=== PATIENT | male | born 2000 | race African-American/Black ===

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

== ENCOUNTER 2019-04-25 21:40 | Emergency (ER) | payer OTHER ==
[2019-04-25 21:45] VITALS: TEMP 98.1
[2019-04-25 22:43] LABS: Amphetamine Screen,Urine Not Detected (NotDetected); Barbiturate Screen,Urine Not Detected (NotDetected); Benzodiazepines Screen,Urine Not Detected (NotDetected); Cocaine Screen,Urine Not Detected (NotDetected); Methadone Screen, Urine Not Detected (NotDetected); Opiate Screen,Urine Not Detected (NotDetected); Oxycodone Screen, Urine Not Detected (NotDetected); Phencyclidine Screen,Urine Not Detected (NotDetected); Tricyclic Antidepressant,Urine Not Detected (NotDetected); Urn Cannabinoid Scrn Detected (NotDetected)
--- NOTE | 2019-04-26 00:45 | ED ---
Psych HPI - General Chief Complaint: Psychiatric Symptoms Stated Complaint: Suicidal Time Seen by Provider: 04/25/19 21:46 Source: patient Mode of arrival: ambulatory - History of Present Illness Initial Comments: This patient is 19-year-old man brought to have evaluation for depression and suicidal ideation. The patient states that he had been undergoing a lot of stress and was feeling that he would be better off . He does not have an active plan for suicide. He does state that if he only he would consider shooting himself, but he does not have access to one. Patient has had previous depression and is not currently seeing a counselor or psychiatrist. He is not currently taking any medications. Denies other complaints MD Complaint: feels depressed -: hour(s) Associated Psychiatric Symptoms: depression History of same: Yes Quality: changing over time Improves With: none Worsens With: none Associated Symptoms: denies other symptoms - Related Data Home Medications Medication Instructions Recorded Confirmed No Known Home Medications 12/12/17 04/25/19 Allergies Allergy/AdvReac Type Severity Reaction Status Date / Time No Known Allergies Allergy Verified 04/25/19 23:01 Review of Systems ROS Statement: Those systems with pertinent positive or pertinent negative responses have been documented in the HPI. ROS Other: All systems not noted in ROS Statement are negative. Respiratory: Denies: cough, dyspnea Cardiovascular: Denies: chest pain, palpitations Gastrointestinal: Denies: abdominal pain, vomiting, diarrhea Genitourinary: Denies: dysuria, hematuria Musculoskeletal: Denies: back pain Neurological: Denies: headache, weakness Psychiatric: Reports: depression, suicidal thoughts. Denies: auditory hallucinations, visual hallucinations, homicidal thoughts Past Medical History Past Medical History: No Reported History History of Any Multi-Drug Resistant Organisms: None Reported Past Surgical History: No Surgical Hx Reported Past Anesthesia/Blood Transfusion Reactions: No Reported Reaction Additional Past Anesthesia/Blood Transfusion Reaction / Comment(s): Has never had either. Past Psychological History: ADD/ADHD, Depression Smoking Status: Current every day smoker Past Alcohol Use History: Rare Past Drug Use History: Marijuana - Past Family History Father History Unknown: Yes Mother History Unknown: Yes family History Unknown: Yes Additional Family Medical History / Comment(s): denies any history of CAD or cancer General Exam Limitations: no limitations General appearance: alert, in no apparent distress Head exam: Present: atraumatic, normocephalic Eye exam: Present: normal appearance. Absent: scleral icterus, conjunctival injection Respiratory exam: Present: normal lung sounds bilaterally. Absent: respiratory distress, wheezes, rales, rhonchi, stridor Cardiovascular Exam: Present: regular rate, normal rhythm, normal heart sounds. Absent: systolic murmur, diastolic murmur, rubs, gallop GI/Abdominal exam: Present: soft. Absent: distended, tenderness, guarding, rebound, rigid, mass Extremities exam: Present: normal inspection Neurological exam: Present: alert Psychiatric exam: Present: normal affect, depressed, suicidal ideation. Absent: agitated, anxious, flat affect, manic, homicidal ideation Skin exam: Present: warm, dry, intact, normal color. Absent: rash Course Vital Signs 04/25/19 21:41 Temperature 98.1 F Pulse Rate 70 Respiratory 20 Rate Blood Pressure 123/80 O2 Sat by Pulse 99 Oximetry Medical Decision Making - Lab Data Lab Results 04/25/19 Range/Units Unknown Urine Opiates Screen Not Detected (NotDetected) Ur Oxycodone Screen Not Detected (NotDetected) Urine Methadone Screen Not Detected (NotDetected) Ur Propoxyphene Screen Not Detected (NotDetected) Ur Barbiturates Screen Not Detected (NotDetected) U Tricyclic Antidepress Not Detected (NotDetected) Ur Phencyclidine Scrn Not Detected (NotDetected) Ur Amphetamines Screen Not Detected (NotDetected) U Methamphetamines Scrn Not Detected (NotDetected) U Benzodiazepines Scrn Not Detected (NotDetected) Urine Cocaine Screen Not Detected (NotDetected) U Marijuana (THC) Screen Detected H (NotDetected) Disposition Clinical Impression: Mood disorder Disposition: HOME SELF-CARE Condition: Good Is patient prescribed a controlled substance at d/c from ED?: No Referrals: None,Stated [Primary Care Provider] - 1-2 days
[2019-04-26 01:00] VITALS: BP 120/75; PULSE 76; RESP 18
== END 2019-04-26 01:00 | disposition home or self-care (01) ==
LOC: EC 21:40
DX: F32.9 Major depressive disorder, single episode, unspecified (principal); R45.851 Suicidal ideations; F17.200 Nicotine dependence, unspecified, uncomplicated; Z73.3 Stress, not elsewhere classified
CPT/HCPCS: 80306; 82075; 99285

== ENCOUNTER 2019-12-03 02:32 | Emergency (ER) | payer OTHER ==
[2019-12-03] MEDS ORDERED: LIDOCAINE 1% INJ 10MG/ML (20 ML MDV) SQ ONE (02:40)
[2019-12-03] MEDS ORDERED: DIPH,PERTUS(ACELL)TETVAC-LF 0.5 ML VIAL IM ONE (02:40)
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
[2019-12-03 02:44] VITALS: RESP 18
[2019-12-03 04:35] VITALS: BP 107/76; PULSE 96; TEMP 98
== END 2019-12-03 04:25 | disposition home or self-care (01) ==
LOC: EC 02:32
DX: S61.511A Laceration without foreign body of right wrist, initial encounter (principal); F17.200 Nicotine dependence, unspecified, uncomplicated; Y00.XXXA Assault by blunt object, initial encounter; Y93.89 Activity, other specified
CPT/HCPCS: 12002; 90471; 90715; 99284

== ENCOUNTER 2020-03-24 20:15 | Emergency (ER) | payer OTHER ==
[2020-03-24 20:19] LABS: Glucose,Whole Blood 81 mg/dL (75-99)
[2020-03-24] MEDS ORDERED: SODIUM CHLORIDE 0.9% 1,000 ML IV STA (20:23)
[2020-03-24 20:25] VITALS: TEMP 97.9
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
[2020-03-24 20:39] LABS: Basophils # (A) 0.1 k/uL (0-0.2); Basophils % (A) 1 %; Eosinophils # (A) 0.3 k/uL (0-0.7); Eosinophils % (A) 3 %; HCT 49.4 % (39.0-53.0); HGB 16.6 gm/dL (13.0-17.5); Lymphocytes # (A) 3.8 k/uL (1.0-4.8); Lymphocytes % (A) 43 %; MCH 30.9 pg (25.0-35.0); MCHC 33.6 g/dL (31.0-37.0); MCV 92.1 fL (80.0-100.0); Mean Platelet Volume 6.7; Monocytes # (A) 0.2 k/uL (0-1.0); Monocytes % (A) 3 %; Neutrophils # (A) 4.2 k/uL (1.3-7.7); Neutrophils % (A) 48 %; Platelet Count 240 k/uL (150-450); RBC 5.36 m/uL (4.30-5.90); RDW 12.7 % (11.5-15.5); WBC 8.6 k/uL (3.8-10.6)
[2020-03-24 21:15] LABS: Amphetamine Screen,Urine Not Detected (NotDetected); Barbiturate Screen,Urine Not Detected (NotDetected); Benzodiazepines Screen,Urine Not Detected (NotDetected); Cocaine Screen,Urine Not Detected (NotDetected); Methadone Screen, Urine Not Detected (NotDetected); Opiate Screen,Urine Not Detected (NotDetected); Oxycodone Screen, Urine Not Detected (NotDetected); Phencyclidine Screen,Urine Not Detected (NotDetected); Tricyclic Antidepressant,Urine Not Detected (NotDetected); Urn Cannabinoid Scrn Detected (NotDetected)
[2020-03-24 21:22] LABS: ALT 10 U/L (4-49); AST 23 U/L (17-59); Acetaminophen <10.0 ug/mL; African American GFR (CKD) >90 (>60 ml/min/1.73 sqM); Albumin 4.4 g/dL (3.5-5.0); Alkaline Phosphatase 85 U/L (38-126); Anion Gap 8 mmol/L; Blood Urea Nitrogen 9 mg/dL (9-20); Calcium 9.3 mg/dL (8.4-10.2); Carbon Dioxide 27 mmol/L (22-30); Chloride 111 mmol/L (98-107); Glucose 93 mg/dL (74-99); Non-African American GFR(CKD) >90 (>60 ml/min/1.73 sqM); Potassium 4.9 mmol/L (3.5-5.1); Salicylate <1.0 mg/dL; Sodium 146 mmol/L (137-145); Total Bilirubin 0.3 mg/dL (0.2-1.3); Total Protein 7.2 g/dL (6.3-8.2)
[2020-03-24 21:32] LABS: Alcohol 238 mg/dL
[2020-03-24] MEDS ORDERED: LORazepam 2 MG/ML INJ IV STA (22:12)
[2020-03-24 23:22] VITALS: BP 135/99; PULSE 110; RESP 16
== END 2020-03-24 23:15 | disposition home or self-care (01) ==
LOC: EC 20:15
DX: F10.129 Alcohol abuse with intoxication, unspecified (principal); Y90.9 Presence of alcohol in blood, level not specified; F17.200 Nicotine dependence, unspecified, uncomplicated
CPT/HCPCS: 36415; 93005; 80053; 85025; 80306; 83520; 99284; 96360; G0480 ×2; 80320; 80329

== ENCOUNTER 2022-12-27 02:30 | Emergency (ER) | payer OTHER ==
[2022-12-27] MEDS ORDERED: LIDOCAINE 1% INJ 10MG/ML (20 ML MDV) SQ ONE (02:43)
[2022-12-27] MEDS ORDERED: LORazepam 2 MG/ML INJ IV STA (02:43)
[2022-12-27] MEDS ORDERED: DIPH,PERTUS(ACELL)TETVAC-LF 0.5 ML VIAL IM ONE (02:43)
[2022-12-27] MEDS ORDERED: HALOPERIDOL LACTATE 5 MG/ML 1 ML VIAL IM STA (02:53)
[2022-12-27] MEDS ORDERED: diphenhydrAMINE 50 MG/ML 1 ML VIAL IVP STA (02:53)
[2022-12-27 03:02] LABS: Basophils % (A) 0 %; Eosinophils # (A) 0.3 k/uL (0-0.7); Eosinophils % (A) 4 %; HCT 43.3 % (39.0-53.0); HGB 14.2 gm/dL (13.0-17.5); Lymphocytes # (A) 3.1 k/uL (1.0-4.8); Lymphocytes % (A) 55 %; MCHC 32.8 g/dL (31.0-37.0); MCV 97.4 fL (80.0-100.0); Mean Platelet Volume 7.3; Monocytes # (A) 0.2 k/uL (0-1.0); Monocytes % (A) 3 %; Neutrophils % (A) 34 %; Platelet Count 219 k/uL (150-450); RBC 4.44 m/uL (4.30-5.90); RDW 12.9 % (11.5-15.5); WBC 5.7 k/uL (3.8-10.6)
[2022-12-27 03:09] LABS: ALT 17 U/L (4-49); AST 33 U/L (17-59); African American GFR (CKD) >90 (>60 ml/min/1.73 sqM); Alkaline Phosphatase 84 U/L (38-126); Anion Gap 12 mmol/L; Blood Urea Nitrogen 7 mg/dL (9-20); Calcium 8.4 mg/dL (8.4-10.2); Carbon Dioxide 19 mmol/L (22-30); Chloride 111 mmol/L (98-107); Glucose 102 mg/dL (74-99); Non-African American GFR(CKD) >90 (>60 ml/min/1.73 sqM); Potassium 3.4 mmol/L (3.5-5.1); Sodium 142 mmol/L (137-145); Total Bilirubin 0.4 mg/dL (0.2-1.3); Total Protein 6.8 g/dL (6.3-8.2)
[2022-12-27] MEDS ORDERED: KETAMINE 50 MG/ML 10 ML VIAL IM ONE (03:20)
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
[2022-12-27] MEDS ORDERED: TOPICAL SKIN ADHESIVE 1 EACH AMP TOPICAL ONE (03:52)
[2022-12-27 03:57] LABS: Alcohol 246 mg/dL
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
[2022-12-27 04:50] LABS: Amphetamine Screen,Urine Not Detected (NotDetected); Barbiturate Screen,Urine Not Detected (NotDetected); Benzodiazepines Screen,Urine Not Detected (NotDetected); Cocaine Screen,Urine Not Detected (NotDetected); Methadone Screen, Urine Not Detected (NotDetected); Opiate Screen,Urine Not Detected (NotDetected); Oxycodone Screen, Urine Not Detected (NotDetected); Phencyclidine Screen,Urine Not Detected (NotDetected); Tricyclic Antidepressant,Urine Not Detected (NotDetected); Urn Cannabinoid Scrn Detected (NotDetected)
[2022-12-27 05:52] VITALS: BP 118/96; PULSE 105; RESP 18; TEMP 98.8
== END 2022-12-27 05:50 | disposition other institution (70) ==
LOC: EC 02:30
DX: S06.5XAA Traumatic subdural hemorrhage with loss of consciousness status unknown, initial encounter (principal); S02.2XXA Fracture of nasal bones, initial encounter for closed fracture; F17.200 Nicotine dependence, unspecified, uncomplicated; F12.90 Cannabis use, unspecified, uncomplicated; Z23 Encounter for immunization; Y04.0XXA Assault by unarmed brawl or fight, initial encounter
CPT/HCPCS: 36415; 80053; 85025; 80306; 72125; 70486; 70450; 90715; 99285; 96365; 96375 ×2; 96372; 90471; G0480; J2060; J1200; J1630; J0690; J2001; 80320

== ENCOUNTER 2023-09-04 04:46 | Emergency (ER) | payer OTHER ==
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
[2023-09-04 05:49] VITALS: BP 132/95; PULSE 96; RESP 18; TEMP 97.5
== END 2023-09-04 05:51 | disposition home or self-care (01) ==
LOC: EC 04:46
DX: F10.129 Alcohol abuse with intoxication, unspecified (principal); F17.200 Nicotine dependence, unspecified, uncomplicated; F12.90 Cannabis use, unspecified, uncomplicated
CPT/HCPCS: 82075; 99284

== ENCOUNTER 2023-09-24 02:16 | Emergency (ER) | payer OTHER ==
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
[2023-09-24 02:26] LABS: Glucose,Whole Blood 165 mg/dL (70-110)
[2023-09-24] MEDS: HYDROmorphone 1 MG/ML 1 ML SYRINGE IVP STA (02:29)
[2023-09-24 02:50] LABS: ALT 43 U/L (4-49); AST 83 U/L (17-59); African American GFR (CKD) >90 (>60 ml/min/1.73 sqM); Alkaline Phosphatase 85 U/L (38-126); Anion Gap 12 mmol/L; Blood Urea Nitrogen 9 mg/dL (9-20); Calcium 8.9 mg/dL (8.4-10.2); Carbon Dioxide 17 mmol/L (22-30); Chloride 110 mmol/L (98-107); Glucose 152 mg/dL (74-99); Non-African American GFR(CKD) >90 (>60 ml/min/1.73 sqM); Potassium 3.5 mmol/L (3.5-5.1); Sodium 139 mmol/L (137-145); Total Bilirubin 0.4 mg/dL (0.2-1.3); Total Protein 7.1 g/dL (6.3-8.2)
[2023-09-24 02:53] LABS: INR 0.9 (<1.2); Prothrombin Time 10.4 sec (10.0-12.5)
[2023-09-24] MEDS: DIPH,PERTUS(ACELL)TETVAC-LF 0.5 ML VIAL IM ONE (03:03)
[2023-09-24 03:13] LABS: HCT 43.3 % (39.0-53.0); HGB 14.3 gm/dL (13.0-17.5); MCH 31.3 pg (25.0-35.0); MCHC 33.1 g/dL (31.0-37.0); MCV 94.6 fL (80.0-100.0); Mean Platelet Volume 7.6; Platelet Count 193 k/uL (150-450); RBC 4.58 m/uL (4.30-5.90); RDW 13.4 % (11.5-15.5)
[2023-09-24 03:22] LABS: Alcohol 258 mg/dL
[2023-09-24 03:28] LABS: Partial Thromboplastin Time 19.1 sec (22.0-30.0)
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
[2023-09-24 03:57] LABS: Lymphocytes # (M) 8.76 k/uL (1.0-4.8); Neutrophils # (M) 3.24 k/uL (1.3-7.7); Neutrophils % (M) 27 %; Nucleated Red Blood Cells 0 /100 WBC (0-0); RBC Morphology Normal; Total Cells Counted 100
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
[2023-09-24 06:33] VITALS: BP 128/86; PULSE 60; RESP 14; TEMP 97.6
== END 2023-09-24 03:48 | disposition short-term general hospital (02) ==
LOC: EC 02:16
DX: S32.591A Other specified fracture of right pubis, initial encounter for closed fracture (principal); S81.812A Laceration without foreign body, left lower leg, initial encounter; S32.502A Unspecified fracture of left pubis, initial encounter for closed fracture; S09.90XA Unspecified injury of head, initial encounter; F10.129 Alcohol abuse with intoxication, unspecified; F17.200 Nicotine dependence, unspecified, uncomplicated; F12.90 Cannabis use, unspecified, uncomplicated; Z23 Encounter for immunization; V89.2XXA Person injured in unspecified motor-vehicle accident, traffic, initial encounter; Y92.411 Interstate highway as the place of occurrence of the external cause
CPT/HCPCS: 36415; 93005; 86900; 86901; 80053; 83605; 84484; 85025; 85610; 85730; 86850; 80320; 72170; 73551; 73590; 72125; 70450; 71260; 74177; 90715; 99291; 90471; 96365; 96375; L1830; G0390; J0690; J1170; Q9967

== ENCOUNTER 2023-10-06 16:02 | Inpatient (IN) | payer OTHER ==
[2023-10-06] MEDS: ORPHENADRINE 30 MG/ML 2 ML VIAL IVP STA (17:18)
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
[2023-10-06] MEDS: ORPHENADRINE 30 MG/ML 2 ML VIAL IM STA (17:34)
[2023-10-06 17:38] LABS: Basophils % (A) 0 %; Eosinophils # (A) 0.2 k/uL (0-0.7); Eosinophils % (A) 2 %; Lymphocytes # (A) 2.3 k/uL (1.0-4.8); Lymphocytes % (A) 23 %; MCH 29.2 pg (25.0-35.0); MCHC 32.3 g/dL (31.0-37.0); MCV 90.4 fL (80.0-100.0); Mean Platelet Volume 7.2; Monocytes # (A) 0.5 k/uL (0-1.0); Monocytes % (A) 5 %; Neutrophils # (A) 6.9 k/uL (1.3-7.7); Neutrophils % (A) 69 %; RBC 3.43 m/uL (4.30-5.90); RDW 14.8 % (11.5-15.5); WBC 10.1 k/uL (3.8-10.6)
[2023-10-06 17:45] LABS: ALT 35 U/L (4-49); AST 36 U/L (17-59); African American GFR (CKD) >90 (>60 ml/min/1.73 sqM); Albumin 3.9 g/dL (3.5-5.0); Alkaline Phosphatase 95 U/L (38-126); Anion Gap 4 mmol/L; Blood Urea Nitrogen 17 mg/dL (9-20); Calcium 9.4 mg/dL (8.4-10.2); Carbon Dioxide 29 mmol/L (22-30); Chloride 98 mmol/L (98-107); Glucose 94 mg/dL (74-99); Non-African American GFR(CKD) >90 (>60 ml/min/1.73 sqM); Potassium 4.6 mmol/L (3.5-5.1); Sodium 131 mmol/L (137-145); Total Bilirubin 1.2 mg/dL (0.2-1.3); Total Protein 7.8 g/dL (6.3-8.2)
[2023-10-06 18:01] LABS: Platelet Count 644 k/uL (150-450)
[2023-10-06] MEDS ORDERED: NALOXONE 0.4 MG/ML 1 ML VIAL IV PRN (18:56)
[2023-10-06] MEDS ORDERED: IBUPROFEN 400 MG TAB PO PRN (18:56)
[2023-10-06] MEDS ORDERED: ACETAMINOPHEN TAB 325 MG TAB PO PRN (18:56)
[2023-10-06] MEDS: HYDROmorphone 0.5 MG/0.5 ML SYRINGE IVP STA (19:00)
[2023-10-06] MEDS: HYDROmorphone 1 MG/ML 1 ML SYRINGE IVP PRN (22:27)
[2023-10-07] MEDS ORDERED: ALPRAZolam 0.25 MG TAB PO PRN (14:09)
[2023-10-07] MEDS ORDERED: TEMAZEPAM 15 MG CAP PO PRN (14:09)
[2023-10-07] MEDS ORDERED: SENNOSIDES-DOCUSATE SODIUM 1 EACH TAB PO PRN (14:15)
[2023-10-07] MEDS: HEPARIN SODIUM,PORCINE 5,000 UNIT/ML 1 ML VIAL SQ SCH (15:19)
[2023-10-07] MEDS: polyethylene glycoL 3350 17 GM POWD.PACK PO SCH (15:20)
[2023-10-07] MEDS: HYDROcodone/APAP 5-325MG 1 EACH TAB PO PRN (21:02)
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
[2023-10-08] MEDS: PANTOPRAZOLE 40 MG TABLET PO SCH (05:16)
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
[2023-10-08 10:27] LABS: Basophils # (A) 0.03 X 10*3/uL (0.00-0.10); Basophils % (A) 0.4 %; Eosinophils # (A) 0.13 X 10*3/uL (0.04-0.35); Eosinophils % (A) 1.7 %; HCT 28.6 % (39.6-50.0); HGB 9.5 g/dL (13.0-17.0); Lymphocytes # (A) 1.94 X 10*3/uL (0.90-5.00); Lymphocytes % (A) 24.7 %; MCH 29.6 pg (27.0-32.0); MCHC 33.2 g/dL (32.0-37.0); MCV 89.1 FL (80.0-97.0); Monocytes % (A) 8.9 %; NRBC Per 100 WBC 0 X 10*3/uL (0.00-0.01); Neutrophils # (A) 5.02 X 10*3/uL (1.80-7.70); Neutrophils % (A) 63.8 %; Platelet Count 622 X 10*3/uL (140-440); RBC 3.21 X 10*6/uL (4.40-5.60); WBC 7.86 X 10*3/uL (4.50-10.00)
[2023-10-08 10:39] LABS: Blood Urea Nitrogen 12.9 mg/dL (9.0-27.0); Calcium 9.2 mg/dL (8.7-10.3); Carbon Dioxide 25.8 mmol/L (21.6-31.8); Chloride 94 mmol/L (96-109); Glucose 92 mg/dL (70-110); Potassium 4.3 mmol/L (3.5-5.5); Sodium 130 mmol/L (135-145)
[2023-10-08] MEDS: FERROUS SULFATE 325 MG TAB PO SCH (15:30)
[2023-10-08] MEDS: KETOROLAC 15 MG/ML 1 ML VIAL IVP PRN (19:51)
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
[2023-10-09 09:21] LABS: HCT 29.4 % (39.6-50.0); HGB 9.7 g/dL (13.0-17.0); MCH 29.6 pg (27.0-32.0); MCV 89.6 FL (80.0-97.0); Mean Platelet Volume 9.3 FL (9.5-12.2); NRBC Per 100 WBC 0 X 10*3/uL (0.00-0.01); Platelet Count 646 X 10*3/uL (140-440); RBC 3.28 X 10*6/uL (4.40-5.60); RDW 14.1 % (11.5-14.5); WBC 5.56 X 10*3/uL (4.50-10.00)
[2023-10-09 09:22] LABS: Basophils # (A) 0.03 X 10*3/uL (0.00-0.10); Basophils % (A) 0.5 %; Eosinophils # (A) 0.13 X 10*3/uL (0.04-0.35); Eosinophils % (A) 2.3 %; Lymphocytes # (A) 1.66 X 10*3/uL (0.90-5.00); Lymphocytes % (A) 29.9 %; Monocytes # (A) 0.41 X 10*3/uL (0.20-1.00); Monocytes % (A) 7.4 %; Neutrophils # (A) 3.31 X 10*3/uL (1.80-7.70); Neutrophils % (A) 59.5 %
[2023-10-09 11:13] LABS: BUN/Creat Ratio 25.17 Ratio (12.00-20.00); Blood Urea Nitrogen 15.1 mg/dL (9.0-27.0); Calcium 9.1 mg/dL (8.7-10.3); Carbon Dioxide 27.1 mmol/L (21.6-31.8); Chloride 98 mmol/L (96-109); Glucose 90 mg/dL (70-110); Potassium 4.5 mmol/L (3.5-5.5); Sodium 133 mmol/L (135-145)
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
[2023-10-10 09:26] LABS: Basophils # (A) 0.03 X 10*3/uL (0.00-0.10); Basophils % (A) 0.6 %; Eosinophils # (A) 0.15 X 10*3/uL (0.04-0.35); HGB 9.4 g/dL (13.0-17.0); Lymphocytes % (A) 37.8 %; MCH 28.9 pg (27.0-32.0); MCHC 31.3 g/dL (32.0-37.0); MCV 92.3 FL (80.0-97.0); Mean Platelet Volume 9.4 FL (9.5-12.2); Monocytes # (A) 0.49 X 10*3/uL (0.20-1.00); Monocytes % (A) 9.8 %; NRBC Per 100 WBC 0 X 10*3/uL (0.00-0.01); Neutrophils # (A) 2.43 X 10*3/uL (1.80-7.70); Neutrophils % (A) 48.4 %; Platelet Count 622 X 10*3/uL (140-440); RBC 3.25 X 10*6/uL (4.40-5.60); RDW 14.2 % (11.5-14.5); WBC 5.02 X 10*3/uL (4.50-10.00)
[2023-10-10 10:13] LABS: BUN/Creat Ratio 20.67 Ratio (12.00-20.00); Blood Urea Nitrogen 12.4 mg/dL (9.0-27.0); Carbon Dioxide 26.6 mmol/L (21.6-31.8); Chloride 97 mmol/L (96-109); Glucose 97 mg/dL (70-110); Potassium 4.6 mmol/L (3.5-5.5); Sodium 132 mmol/L (135-145)
[2023-10-10 10:14] LABS: Calcium 9.2 mg/dL (8.7-10.3)
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
[2023-10-11 08:36] LABS: Basophils # (A) 0.04 X 10*3/uL (0.00-0.10); Basophils % (A) 0.7 %; Eosinophils # (A) 0.13 X 10*3/uL (0.04-0.35); Eosinophils % (A) 2.2 %; HGB 9.6 g/dL (13.0-17.0); Lymphocytes # (A) 1.96 X 10*3/uL (0.90-5.00); Lymphocytes % (A) 33.2 %; MCV 93.7 FL (80.0-97.0); Mean Platelet Volume 9.2 FL (9.5-12.2); Monocytes # (A) 0.42 X 10*3/uL (0.20-1.00); Monocytes % (A) 7.1 %; NRBC Per 100 WBC 0 X 10*3/uL (0.00-0.01); Neutrophils # (A) 3.33 X 10*3/uL (1.80-7.70); Neutrophils % (A) 56.3 %; Platelet Count 610 X 10*3/uL (140-440); RBC 3.31 X 10*6/uL (4.40-5.60); RDW 14.5 % (11.5-14.5); WBC 5.91 X 10*3/uL (4.50-10.00)
[2023-10-11 09:00] LABS: BUN/Creat Ratio 14.29 Ratio (12.00-20.00); Chloride 96 mmol/L (96-109); Glucose 99 mg/dL (70-110); Potassium 4.6 mmol/L (3.5-5.5); Sodium 132 mmol/L (135-145)
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
[2023-10-11] MEDS: CYCLOBENZAPRINE 5 MG TAB PO PRN (22:20)
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
[2023-10-12 20:24] VITALS: RESP 17
[2023-10-13 09:09] VITALS: BP 109/64; PULSE 82; TEMP 97.7
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
[2023-10-13 14:03] VITALS: BMI 19.9
== END 2023-10-13 14:31 | DRG 351 ==
LOC: EC 16:02 → 4SSUR 19:45 → OBSVTOIN 10-07 14:08 → 4SSUR 10-11 00:36
PROVIDERS: ADMIT Hospitalist; ATTEND Hospitalist
DX: M79.662 Pain in left lower leg (principal); F17.210 Nicotine dependence, cigarettes, uncomplicated; F32.A Depression, unspecified; E87.1 Hypo-osmolality and hyponatremia; S32.82XS Multiple fractures of pelvis without disruption of pelvic ring, sequela; S72.92XS Unspecified fracture of left femur, sequela; V03.1 Pedestrian injured in collision with car, pick-up truck or van in traffic accident; F90.9 Attention-deficit hyperactivity disorder, unspecified type; M19.90 Unspecified osteoarthritis, unspecified site; V03.10XA Pedestrian on foot injured in collision with car, pick-up truck or van in traffic accident, initial encounter; Y92.410 Unspecified street and highway as the place of occurrence of the external cause; Z74.1 Need for assistance with personal care
CPT/HCPCS: 36415; 80048; 80053; 85025; 96374; 96375; 96376; 99285

== ENCOUNTER 2024-10-01 05:39 | Emergency (ER) | payer MEDICARE ==
[2024-10-01 05:48] VITALS: TEMP 96.9
[2024-10-01 06:20] LABS: Basophils # (A) 0.01 10*3/uL (0.00-0.10); Basophils % (A) 0.1 %; Eosinophils # (A) 0.12 10*3/uL (0.04-0.35); Eosinophils % (A) 1.7 %; HGB 13.2 g/dL (13.0-17.0); Lymphocytes # (A) 4.76 10*3/uL (0.90-5.00); Lymphocytes % (A) 69.2 %; MCH 31.1 pg (27.0-32.0); MCHC 33.8 g/dL (32.0-37.0); MCV 91.8 fL (80.0-97.0); Mean Platelet Volume 9.1 fL (9.5-12.2); Monocytes # (A) 0.34 10*3/uL (0.20-1.00); Monocytes % (A) 4.9 %; Neutrophils # (A) 1.64 10*3/uL (1.80-7.70); Platelet Count 199 10*3/uL (140-440); RBC 4.25 10*6/uL (4.40-5.60); RDW 12.9 % (11.5-14.5); WBC 6.88 10*3/uL (4.50-10.00)
[2024-10-01 06:27] LABS: ALT 14 U/L (4-49); AST 27 U/L (17-59); African American GFR (CKD) >90 (>60 ml/min/1.73 sqM); Albumin 3.8 g/dL (3.5-5.0); Alkaline Phosphatase 102 U/L (38-126); Anion Gap 12 mmol/L; Blood Urea Nitrogen 8 mg/dL (9-20); Calcium 8.6 mg/dL (8.4-10.2); Carbon Dioxide 23 mmol/L (22-30); Chloride 110 mmol/L (98-107); Glucose 84 mg/dL (74-99); Non-African American GFR(CKD) >90 (>60 ml/min/1.73 sqM); Potassium 3.8 mmol/L (3.5-5.1); Sodium 145 mmol/L (137-145); Total Bilirubin 0.3 mg/dL (0.2-1.3); Total Protein 7.2 g/dL (6.3-8.2)
--- NOTE | 2024-10-01 06:31 | ED ---
Altered Mental Status HPI - General Chief Complaint: Altered Mental Status Stated Complaint: ETOH Time Seen by Provider: 10/01/24 05:55 Source: patient, EMS, RN notes reviewed Mode of arrival: EMS Limitations: no limitations - History of Present Illness Initial Comments: 24-year-old male presents emergency department via EMS chief complaint of mental status. Patient was found sleeping on the side of the road. Patient was initially unresponsive but was responsive to painful stimuli. Patient has no obvious injuries. Patient is agitated on exam. Patient denies any current alcohol or drug use but does have a history of alcohol abuse. Patient has no physical complaints. No chest pain or shortness of breath. - Related Data Home Medications Medication Instructions Recorded Confirmed Sennosides/Docusate Sodium 2 tab PO DIRECTED 10/06/23 10/06/23 [Senna-S 8.6-50 mg Tablet] polyethylene glycoL 3350 [Miralax] 17 gm PO DAILY 10/06/23 10/06/23 Previous Rx's Medication Instructions Recorded Acetaminophen Tab [Tylenol] 650 mg PO Q6HR PRN tab 10/13/23 Cyclobenzaprine [Flexeril] 5 mg PO TID PRN tab 10/13/23 Ferrous Sulfate [Iron (65 MG 325 mg PO W/LUNCH tab 10/13/23 Elemental)] HYDROcodone/APAP 5-325MG [[place] 1 each PO Q6HR PRN #6 tab 10/13/23 5-325] Heparin Sodium,Porcine (1 ml) 5,000 unit SQ Q12HR each 10/13/23 [Heparin Sodium] Ibuprofen [Motrin] 400 mg PO Q6HR PRN tab 10/13/23 Pantoprazole [Protonix] 40 mg PO AC-BRKFST tab 10/13/23 oxyCODONE HCL [OxyIR] 5 mg PO Q6H PRN 3 Days #6 tab 10/13/23 Allergies Allergy/AdvReac Type Severity Reaction Status Date / Time No Known Allergies Allergy Verified 10/01/24 05:48 Review of Systems ROS Statement: Those systems with pertinent positive or pertinent negative responses have been documented in the HPI. ROS Other: All systems not noted in ROS Statement are negative. Past Medical History Past Medical History: No Reported History History of Any Multi-Drug Resistant Organisms: None Reported Past Surgical History: Orthopedic Surgery Additional Past Surgical History / Comment(s): 09/2023 Past Anesthesia/Blood Transfusion Reactions: No Reported Reaction Additional Past Anesthesia/Blood Transfusion Reaction / Comment(s): Has never had either. Past Psychological History: ADD/ADHD, Depression Smoking Status: Vaper - Past Family History Father History Unknown: Yes Mother History Unknown: Yes family History Unknown: Yes Additional Family Medical History / Comment(s): denies any history of CAD or cancer General Exam Limitations: no limitations General appearance: alert, in no apparent distress, appears intoxicated Head exam: Present: atraumatic, normocephalic, normal inspection Eye exam: Present: normal appearance, PERRL, EOMI. Absent: scleral icterus, conjunctival injection, periorbital swelling ENT exam: Present: normal exam, normal oropharynx, mucous membranes moist Neck exam: Present: normal inspection, full ROM. Absent: tenderness, meni ngismus, lymphadenopathy Respiratory exam: Present: normal lung sounds bilaterally. Absent: respiratory distress, wheezes, rales, rhonchi, stridor Cardiovascular Exam: Present: regular rate, normal rhythm, normal heart sounds. Absent: systolic murmur, diastolic murmur, rubs, gallop, clicks Neurological exam: Present: alert, CN II-XII intact. Absent: oriented X3 Psychiatric exam: Present: agitated Skin exam: Present: warm, dry, intact, normal color. Absent: rash Course Vital Signs 10/01/24 10/01/24 10/01/24 05:40 07:41 08:27 Temperature 96.9 F L Pulse Rate 89 74 Respiratory 14 17 18 Rate Blood Pressure 102/57 148/90 O2 Sat by Pulse 99 99 Oximetry - Reevaluation(s) Reevaluation #1: 10/01/24 11:44 Evaluate this time. Patient is awake alert and oriented he has no complaints he has no complaints of headache dizziness focal weakness chest pain shortness of breath extremity pain extremity weakness nausea vomiting. He states that he became very intoxicated when he tried to walk home last night when he states he passed out. Patient was questing discharge patient is sober at this time. Procedures - Restraint - Face to Face Restraint Occurrence 1 Patient's Immediate Situation: Endangers staff safety, Violent behavior Patient's Reaction to the Intervention: Uncooperative, Belligerent, Aggressive Patient's Medical & Behavioral Condition: Awake, Agitated Need to Continue or Terminate Restraint or Seclusion: Continue Face to Face Eval of Restraint Date: 10/01/24 Face to Face Eval of Restraint Time: 06:21 Medical Decision Making - Medical Decision Making Was pt. sent in by a medical professional or institution (, ALINE, HEALTHCARE ACCOUNT MANAGER, urgent care, hospital, or fdc...) When possible be specific @ -[No] Did you speak to anyone other than the patient for history (EMS, parent, family, police, friend...)? What history was obtained from this source @ -[No] Did you review nursing and triage notes (agree or disagree)? Why? @ -[I reviewed and agree with nursing and triage notes] Were old charts reviewed (outside hosp., previous admission, EMS record, old EKG, old radiological studies, urgent care reports/EKG's, fdc records)? Report findings @ -[No old charts were reviewed] Differential Diagnosis (chest pain, altered mental status, abdominal pain women, abdominal pain men, vaginal bleeding, weakness, fever, dyspnea, syncope, headache, dizziness, GI bleed, back pain, seizure, CVA, palpatations, mental health, musculoskeletal)? @ -Differential Altered Mental Status: Hypoglycemia, DKA, hypercapnia, ETOH, overdose, CO poisoning, trauma, myxedema coma, HTN encephalopathy, infection, encephalitis, psychosis, intercranial hemorrhage, hepatic encephalopathy, meningitis, CVA, this is not meant to be an all-inclusive list EKG interpreted by me (3pts min.). @ -None X-rays interpreted by me (1pt min.). @ -[None done] CT interpreted by me (1pt min.). @ -[None done] U/S interpreted by me (1pt. min.). @ -[None done] What testing was considered but not performed or refused? (CT, X-rays, U/S, labs)? Why? @ -[None] What meds were considered but not given or refused? Why? @ -[None] Did you discuss the management of the patient with other professionals (professionals i.e. ALINE Parra, HEALTHCARE ACCOUNT MANAGER, lab, RT, psych nurse, social media manager, petroleum laboratory technician, teacher, community development officer, child support case officer)? Give summary @ -[No] Was smoking cessation discussed for >3mins.? @ -[No] Was critical care preformed (if so, how long)? @ -[No] Were there social determinants of health that impacted care today? How? (Homelessness, low income, unemployed, alcoholism, drug addiction, transportation, low edu. Level, literacy, decrease access to med. care, shelter, rehab)? @ -[No] Was there de-escalation of care discussed even if they declined (Discuss DNR or withdrawal of care, Hospice)? DNR status @ -[No] What co-morbidities impacted this encounter? (DM, HTN, Smoking, COPD, CAD, Cancer, CVA, ARF, Chemo, Hep., AIDS, mental health diagnosis, sleep apnea, morbid obesity)? @ -[None] Was patient admitted / discharged? Hospital course, mention meds given and route, prescriptions, significant lab abnormalities, going to OR and other pertinent info. @ -Discharge patient presented for altered mental status. Patient was combative initially. And intoxicated. Patient was observed for over 6 hours. Patient is sober at this time he has no complaints and will be discharged in stable condition. Undiagnosed new problem with uncertain prognosis? @ -[No] Drug Therapy requiring intensive monitoring for toxicity (Heparin, Nitro, Insulin, Cardizem)? @ -[No] Were any procedures done? @ -[No] Diagnosis/symptom? @Alcohol intoxication Acute, or Chronic, or Acute on Chronic? @ -Acute Uncomplicated (without systemic symptoms) or Complicated (systemic symptoms)? @ -complicated Side effects of treatment? @ -[No] Exacerbation, Progression, or Severe Exacerbation? @ -[No] Poses a threat to life or bodily function? How? (Chest pain, [place], [place], pneumonia, PE, COPD, DKA, ARF, appy, cholecystitis, CVA, Diverticulitis, Homicidal, Suicidal, threat to staff... and all critical care pts) @ -[No] - Lab Data Result diagrams: 10/01/24 05:49 10/01/24 05:49 Lab Results 10/01/24 10/01/24 10/01/24 Range/Units 05:49 05:49 06:30 WBC 6.88 (4.50-10.00) 10*3/uL RBC 4.25 L (4.40-5.60) 10*6/uL Hgb 13.2 (13.0-17.0) g/dL Hct 39.0 L (39.6-50.0) % MCV 91.8 (80.0-97.0) fL MCH 31.1 (27.0-32.0) pg MCHC 33.8 (32.0-37.0) g/dL Plt Count 199 (140-440) 10*3/uL MPV 9.1 L (9.5-12.2) fL Immature Gran % (Auto) 0.1 % Neutrophils % 24.0 % Lymphocytes % 69.2 % Monocytes % 4.9 % Eosinophils % 1.7 % Basophils % 0.1 % Immature Gran # 0.01 (0.00-0.04) 10*3/uL Neutrophils # 1.64 L (1.80-7.70) 10*3/uL Lymphocytes # 4.76 (0.90-5.00) 10*3/uL Monocytes # 0.34 (0.20-1.00) 10*3/uL Eosinophils # 0.12 (0.04-0.35) 10*3/uL Basophils # 0.01 (0.00-0.10) 10*3/uL Manual Slide Review Performed Sodium 145 (137-145) mmol/L Potassium 3.8 (3.5-5.1) mmol/L Chloride 110 H (98-107) mmol/L Carbon Dioxide 23 (22-30) mmol/L Anion Gap 12 mmol/L BUN 8 L (9-20) mg/dL Creatinine 0.69 (0.66-1.25) mg/dL Est GFR (CKD-EPI)AfAm >90 (>60 ml/min/1.73 sqM) Est GFR (CKD-EPI)NonAf >90 (>60 ml/min/1.73 sqM) Glucose 84 (74-99) mg/dL Calcium 8.6 (8.4-10.2) mg/dL Total Bilirubin 0.3 (0.2-1.3) mg/dL AST 27 (17-59) U/L ALT 14 (4-49) U/L Alkaline Phosphatase 102 (38-126) U/L Total Protein 7.2 (6.3-8.2) g/dL Albumin 3.8 (3.5-5.0) g/dL Urine Opiates Screen Not Detected (NotDetected) Ur Oxycodone Screen Not Detected (NotDetected) Urine Methadone Screen Not Detected (NotDetected) Ur Barbiturates Screen Not Detected (NotDetected) U Tricyclic Antidepress Not Detected (NotDetected) Ur Phencyclidine Scrn Not Detected (NotDetected) Ur Amphetamines Screen Not Detected (NotDetected) U Methamphetamines Scrn Not Detected (NotDetected) U Benzodiazepines Scrn Not Detected (NotDetected) Urine Cocaine Screen Not Detected (NotDetected) U Marijuana (THC) Screen Detected H (NotDetected) Serum Alcohol 217 H* mg/dL Disposition Clinical Impression: Alcohol intoxication Disposition: HOME SELF-CARE Condition: Stable Additional Instructions: Please return to the Emergency Department if symptoms worsen or any other concerns. Is patient prescribed a controlled substance at d/c from ED?: No Referrals: [facility] [NON-STAFF] - 1-2 days [facility]icine [NON-STAFF] - 1-2 days Forms: AA Curtis Quarles [facility], Personal Orthodontist Assistant, Area PCPs Time of Disposition: 11:46
[2024-10-01 06:33] LABS: Alcohol 217 mg/dL
[2024-10-01] MEDS: LORazepam 1 MG/0.5 ML VIAL IM STA (06:36)
[2024-10-01] MEDS: ZIPRASIDONE 20 MG VIAL IM STA (06:43)
[2024-10-01 06:53] LABS: Amphetamine Screen,Urine Not Detected (NotDetected); Barbiturate Screen,Urine Not Detected (NotDetected); Benzodiazepines Screen,Urine Not Detected (NotDetected); Cocaine Screen,Urine Not Detected (NotDetected); Methadone Screen, Urine Not Detected (NotDetected); Opiate Screen,Urine Not Detected (NotDetected); Oxycodone Screen, Urine Not Detected (NotDetected); Phencyclidine Screen,Urine Not Detected (NotDetected); Tricyclic Antidepressant,Urine Not Detected (NotDetected); Urn Cannabinoid Scrn Detected (NotDetected)
[2024-10-01] MEDS: SODIUM CHLORIDE 0.9% 1,000 ML IV ONE (10:27)
[2024-10-01 11:55] VITALS: BP 132/89; PULSE 87; RESP 20
== END 2024-10-01 12:16 | disposition home or self-care (01) ==
LOC: EC 05:39
DX: F10.129 Alcohol abuse with intoxication, unspecified (principal); F17.290 Nicotine dependence, other tobacco product, uncomplicated; Y90.8 Blood alcohol level of 240 mg/100 ml or more
CPT/HCPCS: 36415; 80053; 85025; 80306; 80320; 99285; 96372 ×2; J2060; J3486

== ENCOUNTER 2024-10-30 11:53 | Emergency (ER) | payer MEDICARE ==
[2024-10-30 12:00] VITALS: RESP 16
[2024-10-30] MEDS: KETOROLAC 15 MG/ML 1 ML VIAL IM STA (12:22)
[2024-10-30] MEDS: ACETAMINOPHEN TAB 500 MG TAB PO STA (12:22)
--- NOTE | 2024-10-30 12:58 | ED ---
Lower Extremity Injury HPI - General Chief Complaint: Extremity Injury, Lower Stated Complaint: R foot injury Time Seen by Provider: 10/30/24 12:06 Source: patient, RN notes reviewed Mode of arrival: ambulatory Limitations: no limitations - History of Present Illness Initial Comments: This is a 24-year-old male presenting for right foot injury/pain following a trip and fall at 2000 this evening. Patient states he tripped over a ledge while intoxicated, injuring his foot, noting pain with ambulation. Patient denies striking head, loss of consciousness, headache, neck pain or other significant injury. MD Complaint: foot injury Onset/Timin -: days(s) Injury: Foot: Right Place: home Severity scale (1-10): 9 Improves With: immobilization, rest Worsens With: weight bearing, movement, palpation Context: fall - Related Data Home Medications Medication Instructions Recorded Confirmed Sennosides/Docusate Sodium 2 tab PO DIRECTED 10/06/23 10/06/23 [Senna-S 8.6-50 mg Tablet] polyethylene glycoL 3350 [Miralax] 17 gm PO DAILY 10/06/23 10/06/23 Previous Rx's Medication Instructions Recorded Acetaminophen Tab [Tylenol] 650 mg PO Q6HR PRN tab 10/13/23 Cyclobenzaprine [Flexeril] 5 mg PO TID PRN tab 10/13/23 Ferrous Sulfate [Iron (65 MG 325 mg PO W/LUNCH tab 10/13/23 Elemental)] HYDROcodone/APAP 5-325MG [[place] 1 each PO Q6HR PRN #6 tab 10/13/23 5-325] Heparin Sodium,Porcine (1 ml) 5,000 unit SQ Q12HR each 10/13/23 [Heparin Sodium] Ibuprofen [Motrin] 400 mg PO Q6HR PRN tab 10/13/23 Pantoprazole [Protonix] 40 mg PO AC-BRKFST tab 10/13/23 oxyCODONE HCL [OxyIR] 5 mg PO Q6H PRN 3 Days #6 tab 10/13/23 Ibuprofen [Motrin] 600 mg PO Q8HR PRN #30 tab 10/30/24 Allergies Allergy/AdvReac Type Severity Reaction Status Date / Time No Known Allergies Allergy Verified 10/30/24 12:00 Review of Systems ROS Statement: Those systems with pertinent positive or pertinent negative responses have been documented in the HPI. ROS Other: All systems not noted in ROS Statement are negative. Past Medical History Past Medical History: No Reported History History of Any Multi-Drug Resistant Organisms: None Reported Past Surgical History: Orthopedic Surgery Additional Past Surgical History / Comment(s): 09/2023 Past Anesthesia/Blood Transfusion Reactions: No Reported Reaction Additional Past Anesthesia/Blood Transfusion Reaction / Comment(s): Has never had either. Past Psychological History: ADD/ADHD, Depression Smoking Status: Current every day smoker, Vaper Past Alcohol Use History: Occasional Past Drug Use History: Marijuana - Past Family History Father History Unknown: Yes Mother History Unknown: Yes family History Unknown: Yes Additional Family Medical History / Comment(s): denies any history of CAD or cancer General Exam Limitations: no limitations General appearance: alert, in no apparent distress Head exam: Present: atraumatic, normocephalic, normal inspection Eye exam: Present: normal appearance, PERRL, EOMI. Absent: scleral icterus, conjunctival injection, periorbital swelling ENT exam: Present: normal exam, mucous membranes moist Neck exam: Present: normal inspection. Absent: tenderness, meningismus, lym phadenopathy Respiratory exam: Present: normal lung sounds bilaterally. Absent: respiratory distress, wheezes, rales, rhonchi, stridor Cardiovascular Exam: Present: regular rate, normal rhythm, normal heart sounds. Absent: systolic murmur, diastolic murmur, rubs, gallop, clicks GI/Abdominal exam: Present: soft, normal bowel sounds. Absent: distended, tenderness, guarding, rebound, rigid Extremities exam: Present: full ROM, tenderness (Positive tenderness to plantar aspect of the mid right foot), normal capillary refill, other (Right foot neurovascular and motor function intact. Negative medial/lateral malleolus, navicular or fifth metatarsal TTP, crepitus, deformity, ecchymosis, edema). Absent: pedal edema, joint swelling, calf tenderness Back exam: Present: normal inspection Neurological exam: Present: alert, oriented X3, CN II-XII intact Psychiatric exam: Present: normal affect, normal mood Skin exam: Present: warm, dry, intact, normal color. Absent: rash Course Vital Signs 10/30/24 10/30/24 11:57 13:56 Temperature 98.0 F 98.1 F Pulse Rate 92 88 Respiratory 16 16 Rate Blood Pressure 145/71 137/82 O2 Sat by Pulse 98 98 Oximetry Medical Decision Making - Medical Decision Making Was pt. sent in by a medical professional or institution (, ALINE, BODS DEVELOPER, urgent care, hospital, or skilled nursing...) When possible be specific @ -No Did you speak to anyone other than the patient for history (EMS, parent, family, police, friend...)? What history was obtained from this source @ -No Did you review nursing and triage notes (agree or disagree)? Why? @ -I reviewed and agree with nursing and triage notes Were old charts reviewed (outside hosp., previous admission, EMS record, old EKG, old radiological studies, urgent care reports/EKG's, skilled nursing records)? Report findings @ -No old charts were reviewed Differential Diagnosis (chest pain, altered mental status, abdominal pain women, abdominal pain men, vaginal bleeding, weakness, fever, dyspnea, syncope, headache, dizziness, GI bleed, back pain, seizure, CVA, palpatations, mental health, musculoskeletal)? @ -Differential Musculoskeletal Muscular strain, contusion, ligament sprain, fracture, arthritis, septic arthritis, bursitis, cellulitis, muscle spasm, nerve compression, DVT, arterial occlusion, herpes zoster, electrolyte abnormality, tumor.... This is not meant to be in all inclusive list EKG interpreted by me (3pts min.). @ -Not done X-rays interpreted by me (1pt min.). @ -Right foot x-ray shows mild bunion but no acute fracture or dislocation. CT interpreted by me (1pt min.). @ -None done U/S interpreted by me (1pt. min.). @ -None done What testing was considered but not performed or refused? (CT, X-rays, U/S, labs)? Why? @ -None What meds were considered but not given or refused? Why? @ -None Did you discuss the management of the patient with other professionals (professionals i.e. ALINE Parra, BODS DEVELOPER, lab, RT, psych nurse, social media coordinator, sheet metal assembler and riveter, teacher, tourist information officer, case liner)? Give summary @ -No Was smoking cessation discussed for >3mins.? @ -No Was critical care preformed (if so, how long)? @ -No Were there social determinants of health that impacted care today? How? (Homelessness, low income, unemployed, alcoholism, drug addiction, transportati on, low edu. Level, literacy, decrease access to med. care, intermediate, rehab)? @ -No Was there de-escalation of care discussed even if they declined (Discuss DNR or withdrawal of care, Hospice)? DNR status @ -No What co-morbidities impacted this encounter? (DM, HTN, Smoking, COPD, CAD, Cancer, CVA, ARF, Chemo, Hep., AIDS, mental health diagnosis, sleep apnea, morbid obesity)? @ -None Was patient admitted / discharged? Hospital course, mention meds given and route, prescriptions, significant lab abnormalities, going to OR and other pertinent info. @ -Patient initially provided IM Toradol and p.o. Tylenol for pain. Right foot x-ray shows mild bunion but no acute fracture or dislocation. Alex wrap applied, crutches provided and Motrin sent to patient's pharmacy. Advised alternate Tylenol/Motrin every 4 hours for pain as well as RICE. Discussed patient with Dr. Hector. Undiagnosed new problem with uncertain prognosis? @ -No Drug Therapy requiring intensive monitoring for toxicity (Heparin, Nitro, Insulin, Cardizem)? @ -No Were any procedures done? @ -No Diagnosis/symptom? @ -Right foot contusion Acute, or Chronic, or Acute on Chronic? @ -Acute Uncomplicated (without systemic symptoms) or Complicated (systemic symptoms)? @ -Uncomplicated Side effects of treatment? @ -No Exacerbation, Progression, or Severe Exacerbation? @ -No Poses a threat to life or bodily function? How? (Chest pain, [place], [place], pneumonia, PE, COPD, DKA, ARF, appy, cholecystitis, CVA, Diverticulitis, Homicidal, Suicidal, threat to staff... and all critical care pts) @ -No Disposition Clinical Impression: Foot pain, right Disposition: HOME SELF-CARE Instructions (If sedation given, give patient instructions): Foot Contusion (ED) Additional Instructions: Alternate Tylenol/Motrin every 4 hours for pain. Rest, compression, elevation. May apply cold compress for 10 minutes up to 4 times daily. Prescriptions: Ibuprofen [Motrin] 600 mg PO Q8HR PRN #30 tab PRN Reason: Pain Is patient prescribed a controlled substance at d/c from ED?: No Referrals: None,Stated [Primary Care Provider] - 1-2 days Yonathan Lopes MD [STAFF PHYSICIAN] - 1-2 days Time of Disposition: 13:23
--- NOTE | 2024-10-30 13:20 | XR ---
EXAMINATION TYPE: XR foot complete RT DATE OF EXAM: 10/30/2024 1:01 PM COMPARISON: None CLINICAL INDICATION: Male, 24 years old with history of Trip and fall, pain with weightbearing; PHH, pain TECHNIQUE: 3 views FINDINGS: Mild bunion formation. Rodriguez's toe. Tiny os peroneum. No acute fracture, subluxation, dislocation is seen. IMPRESSION: Mild bunion. No acute osseous abnormalities seen. [facility], Workstation: [facility], 10/30/2024 1:18 PM
[2024-10-30 13:58] VITALS: BP 137/82; PULSE 88; TEMP 98.1
== END 2024-10-30 13:58 | disposition home or self-care (01) ==
LOC: EC 11:53
DX: S90.31XA Contusion of right foot, initial encounter (principal); F17.200 Nicotine dependence, unspecified, uncomplicated; W01.0XXA Fall on same level from slipping, tripping and stumbling without subsequent striking against object, initial encounter
CPT/HCPCS: 73630; 99283; 96372; J1885